=== PATIENT | female | born 1930 | race Caucasian/White ===

== ENCOUNTER 2017-01-15 14:01 | Emergency (ER) | payer MEDICARE, OTHER ==
[2015-09-04 15:50] VITALS: BMI 20.6
[~2017-01-15 14:01] MED LIST: EC-NAPROSYN500 MG PO; HYDROCODONE-APA1 TAB PO; LEVAQUIN500 MG PO; LISINOPRIL10 MG GT; MINERAL OIL25 ML PO; MIRALAX17 GM PO; PROTONIX40 MG PO; XANAX1 MG PO
[2017-01-15 15:02] LABS: APPEARANCE CLEAR (CLEAR); COLOR RED (YELLOW)
[2017-01-15 15:08] LABS: BACTERIA FEW /hpf (NONE SEEN); EPITHELIAL CELLS OCC /hpf (0-5); RED CELLS - URINE OCC /hpf (0-5); WHITE CELLS - URINE 0-5 /hpf (0-5)
== END 2017-01-15 16:10 | disposition home or self-care (01) ==
LOC: D.ER 14:01
PROVIDERS: Emergency Medicine
DX: N39.0 Urinary tract infection, site not specified (principal); K21.9 Gastro-esophageal reflux disease without esophagitis; I10 Essential (primary) hypertension

== ENCOUNTER 2017-05-11 21:39 | Emergency (ER) | payer MEDICARE, OTHER ==
[2015-09-04 15:50] VITALS: BMI 20.6
== END 2017-05-12 00:10 | disposition home or self-care (01) ==
LOC: D.ER 21:39
DX: S39.012A Strain of muscle, fascia and tendon of lower back, initial encounter (principal); W01.0XXA Fall on same level from slipping, tripping and stumbling without subsequent striking against object, initial encounter; Y93.89 Activity, other specified; Y92.89 Other specified places as the place of occurrence of the external cause; M62.830 Muscle spasm of back; K21.9 Gastro-esophageal reflux disease without esophagitis; I10 Essential (primary) hypertension